=== PATIENT | female | born 1940 | race Caucasian/White ===

== ENCOUNTER 2018-02-12 09:11 | Emergency (ER) | payer MEDICARE, SELFPAY ==
[2018-02-12] VITALS (9 sets, daily range): BP systolic 128–137; BP diastolic 65–72; PULSE 73–96; RESP 14–22; TEMP 36.4–36.6; O2SAT 93–98
--- NOTE | 2018-02-12 09:20 | DI.REPORT_ITS ---
SYMPTOM/DIAGNOSIS: CHEST PAIN, H/O HTN, R/O ACUTE DISEASE CHEST X-RAY: PA and lateral. Comparison 06/14/14. Heart size and pulmonary vasculature are within normal limits. There is a moderate size hiatal hernia present. The lungs are clear. No effusions or pneumothoraces are identified. Degenerative changes are seen in the spine. IMPRESSION: No acute pulmonary process.
--- NOTE | 2018-02-12 09:22 | ED.GENADUL_ITS ---
Disposition Clinical Impression: Chest pain, Back pain Disposition: HOME Condition: Good Instructions: Chest Pain (ED), Back Pain (ED) Additional Instructions: Drink plenty of fluids and get plenty of rest. Take your regular medications as directed. Follow up with your primary care doctor in 1 week. Return to the emergency department with any worsening or new concerning symptoms. Medical Decision Making - Lab Data Laboratory Tests 02/12/18 02/12/18 02/12/18 09:20 09:20 09:20 WBC 7.79 RBC 4.73 Hgb 13.0 Hct 39.9 MCV 84.4 MCH 27.5 MCHC 32.6 RDW 14.0 Plt Count 203 MPV 9.8 Immature Gran % 0.1 Neutrophils % 81.2 Lymphocytes % 9.8 Monocytes % 8.2 Eosinophils % 0.6 Basophils % 0.1 Absolute Neutrophils 6.32 Absolute Lymphocytes 0.76 L Absolute Monocytes 0.64 Absolute Eosinophils 0.05 Absolute Basophils 0.01 D-Dimer 1633 H Sodium 139 Potassium 3.2 L Chloride 98 Carbon Dioxide 31.1 Anion Gap 9.9 BUN 13 Creatinine 0.85 Estimated GFR/1.73 m2 >= 60.00 Glucose 119 H Calcium 8.9 Magnesium 1.7 L Total Bilirubin 0.6 AST 18 ALT 20 Alkaline Phosphatase 87 Troponin I < 0.02 NT-Pro-B Natriuret Pep 234 Total Protein 8.4 H Albumin 3.3 L 02/12/18 13:50 WBC RBC Hgb Hct MCV MCH MCHC RDW Plt Count MPV Immature Gran % Neutrophils % Lymphocytes % Monocytes % Eosinophils % Basophils % Absolute Neutrophils Absolute Lymphocytes Absolute Monocytes Absolute Eosinophils Absolute Basophils D-Dimer Sodium Potassium Chloride Carbon Dioxide Anion Gap BUN Creatinine Estimated GFR/1.73 m2 Glucose Calcium Magnesium Total Bilirubin AST ALT Alkaline Phosphatase Troponin I < 0.02 NT-Pro-B Natriuret Pep Total Protein Albumin - EKG Data -: EKG Interpreted by Me 02/12/18 10:49 81bpm. Sinus. Frequent PACs. No acute ST elevation or depression. - Radiology Data Radiology results: report reviewed, image reviewed CXR: negative CT chest: 1. No evidence of PE, dissection, or aneurysm. 2. Large hiatal hernia. 3. Dependent atelectasis in both lungs. No focal consolidating infiltrate. - Medical Decision Making 77-year-old female with history of hypertension, high cholesterol who presents with substernal chest pain for the past 3 days. Admits to aching upper body pain in her arms, chest and back with intermittent sharp pleuritic substernal chest pain. She denies any chest pain at present. Admits to family stress at home recently and feels like this is the cause. Her EKG on arrival negative for acute findings. Vitals within normal limits. No acute findings on exam. She admits to chest and back pain worse with movement but denies injury. Differential diagnosis includes ACS, PE, dissection, anxiety, muscle strain. Will order cardiac workup and chest x-ray. As patient is to increased stress at home, anxiety may be a cause. As her pain is worse with movement may be musculoskeletal. She has pleuritic pain, will also order d-dimer. 1100: Pt denies any pain. She denies any acute complaints. She is refusing to get back on monitor. She is now fully dressed. Explained to pt that her labs are still pending. 1130: Labs and imaging reviewed per d-dimer 1633. Potassium 3.2. Troponin less than 0.02. BNP 234. Chest x-ray negative. Will place order for CT chest to rule out PE. 1140: Patient has allergy to IV dye. Patient states this was 30 years ago and she developed hives. She denies any difficulty swallowing or breathing after IV dye. This was discussed with radiology and agree with plan for premedication. Will give 50 mg Benadryl IV, 125 Solu-Medrol IV, and 1 L NS. 1400: CT chest negative for PE or any other acute findings. Patient has denied any chest pain while here in the emergency department. Her second troponin is negative. She feels good and is requesting to go home. She is instructed to drink plenty of fluids, get plenty of rest, follow up with her primary care doctor in 1 week and return here with any concerns. She is smiling and pleasant , appears nontoxic and in no acute distress. History of Present Illness - General Chief complaint: Chest Pain Stated complaint: BALAJI Time Seen by Provider: 02/12/18 09:18 Source: patient Mode of arrival: ambulatory Limitations: no limitations - History of Present Illness Initial comments: Patient is a 77-year-old female with history of hypertension, high cholesterol who presents with upper body pain and chest pain for the past 3 days. Patient states she has aching in her upper body and arms and intermittent sharp substernal chest pressure. Patient states the substernal chest pain is 10/10 at its worst is currently 0. She admits to some relief with heating pad. She states her sharp substernal chest pain is worse with deep breathing. She called her primary care doctor and chiropractor at 2 AM this morning regarding her symptoms but no one was available. She received a call from her primary care office this morning stating they were sending an ambulance for her for further evaluation of this. Patient also admits to frequent stress at home recently and states that she has had issues with her family for years and states she has been having more stress than usual with them regarding money. Patient denies leg pain, swelling, recent surgery or recent travel. - Related Data Calcium Carbonate [Calcium] 500 mg PO DAILY #90 tab.chew 09/14/12 Cholecalciferol (Vitamin D3) [Vitamin D3] 1,000 unit PO DAILY #90 09/14/12 Aspirin [Ecotrin] 81 mg PO DAILY 05/02/14 Atorvastatin Calcium 40 mg PO DAILY #90 tab-cap 04/08/17 Hydrochlorothiazide 12.5 mg PO DAILY #90 tab 04/08/17 Melatonin 1.5 mg PO HS PRN #30 tab-cap 06/11/17 Omeprazole 20 mg PO DAILY #90 cap 06/26/17 Ibuprofen 0.5 - 1 tab PO Q8H PRN #120 tab 11/16/17 Allergies Allergy/AdvReac Type Severity Reaction Status Date / Time adhesive Allergy Intermediate Topical Unverified 02/12/18 09:27 Irritation lisinopril Allergy Intermediate ?Kaylynn-oral, Unverified 02/12/18 09:27 lip & tongue swelling Iodinated Contrast- Oral and Allergy Unknown hives Unverified 02/12/18 09:27 IV Dye lactose AdvReac Mild Bloating Unverified 02/12/18 09:27 and diarrhea estradiol AdvReac Unknown intolerant Unverified 02/12/18 09:27 Review of Systems Constitutional: denies: chills, fever Eyes: denies: eye pain ENT: denies: ear pain, dental pain Respiratory: denies: cough, shortness of breath Cardiovascular: chest pain. denies: dyspnea on exertion Gastrointestinal: denies: abdominal pain, nausea, vomiting Genitourinary: denies: urgency, dysuria, frequency Musculoskeletal: denies: back pain Skin: denies: rash, lesions Neurological: denies: headache, weakness, numbness Past Medical History - Past Medical History Medical history: CVA/TIA, GERD, hyperlipidemia, hypertension Cerebral artery occlusion, CKD, IBS, KARL, Metastatic squamous cell carcinoma Surgical history: cholecystectomy, hysterectomy, other (Carpal tunnel release, cataract surgery) - Social History Smoking status: never smoker Alcohol use: none Drug use: none General Exam - General Limitations: no limitations General appearance: alert, in no apparent distress - Eye Eye exam: Present: EOMI - Respiratory Respiratory exam: Present: normal lung sounds bilaterally. Absent: respiratory distress, wheezes, rales, rhonchi, stridor - Cardiovascular Cardiovascular Exam: Present: regular rate, normal rhythm. Absent: bradycardia , tachycardia - GI/Abdominal GI/Abdominal exam: Present: soft, normal bowel sounds. Absent: distended, tenderness, guarding, rebound, rigid - Extremities Exam Extremities exam: Present: other (no b/l lower extremity edema) - Neurological Exam Neurological exam: Present: alert, oriented X3 - Psychiatric Psychiatric exam: Present: normal affect - Skin Skin exam: Present: warm, dry, intact
[2018-02-12 09:38] LABS: Abs Immature Grans 0.01 k/cumm (0.0-0.09); Absolute Basophil Count 0.01 k/cumm (0.0-0.2); Absolute Eosinophil Count 0.05 k/cumm (0.0-0.7); Absolute Lymphocyte Count 0.76 k/cumm (1.2-3.4); Absolute Monocyte Count 0.64 k/cumm (0.11-0.7); Absolute Neutrophil Count 6.32 k/cumm (1.2-6.7); Basophils % 0.1; Eosinophils % 0.6; HCT 39.9 % (36.0-46.0); Immature Grans % 0.1; Lymphocytes % 9.8; Mean Corp. HGB Concentration 32.6 g/dL (32.0-36.0); Mean Corpuscular Hemoglobin 27.5 pg (27.0-33.0); Mean Corpuscular Volume 84.4 fL (80-95); Mean Platelet Volume 9.8 fL (8.0-11.0); Monocytes % 8.2; Neutrophils % 81.2; Platelet Count 203 x1000/uL (130-400); RBC 4.73 m/cumm (4.00-5.20); White Blood Cell Count 7.79 k/cumm (4.4-10.8)
[2018-02-12 09:55] LABS: ALT 20 U/L (12-78); AST 18 U/L (15-37); Albumin 3.3 g/dL (3.4-5.0); Alkaline Phosphatase 87 U/L (46-116); Anion Gap 9.9 mmol/L (3-11); BUN 13 mg/dL (7-18); Bilirubin, Total 0.6 mg/dL (0.2-1.0); CO2 31.1 mmol/L (21.0-32.0); CREATININE 0.85 mg/dL (0.55-1.02); Calcium 8.9 mg/dL (8.5-10.1); Chloride 98 mmol/L (98-107); Glucose 119 mg/dL (70-100); Magnesium 1.7 mg/dL (1.8-2.4); NT-proBNP 234 pg/mL; Potassium 3.2 mmol/L (3.5-5.1); Sodium 139 mmol/L (136-145); Total Protein 8.4 g/dL (6.4-8.2)
[2018-02-12 09:56] LABS: Troponin I < 0.02 ng/mL (0.00-0.06)
--- NOTE | 2018-02-12 11:01 | NUR.NOTE ---
pt declined to be placed back on cardiac monitor technician after xray- has removed gown and put her own clothing back on. Note:
[2018-02-12 11:27] LABS: D-Dimer 1633 ng/mlFEU (<500)
--- NOTE | 2018-02-12 11:30 | DI.RPTCT_ITS ---
SYMPTOM/DIAGNOSIS: PLEURITIC CHEST PAIN, ELEVATED D DIMER, ? PE PE CHEST CT: CT angiography was performed with multi slice acquisition and multi planar and 3D reconstruction. CT scan of the chest was performed according to the pulmonary embolus protocol. No priors for comparison. There is no evidence of a pulmonary embolus. There is atherosclerosis of the thoracic aorta but no aneurysmal dilatation or dissection. Heart size is within normal limits. There is no significant pericardial effusion. No findings to suggest right ventricular dysfunction are present. Coronary artery calcifications are present. There is no significant mediastinal or hilar adenopathy. There is a large hiatal hernia present. No pleural effusion or pneumothorax is identified. Dependent atelectatic changes are seen in the lungs. No focal consolidating infiltrates are seen. The tracheobronchial tree is unremarkable. The upper abdominal images show the patient is status post cholecystectomy. IMPRESSION: 1. No evidence of a pulmonary embolus, thoracic aortic dissection or aneurysm. 2. Large hiatal hernia. 3. Dependent atelectasis in the lungs. No focal consolidating infiltrate. These findings were discussed with the ER on the date of the examination.
[2018-02-12] MEDS: Normal Saline 1,000 ML 1000 ML IV (11:57)
[2018-02-12] MEDS: diphenhydrAMINE 50 MG/ML VIAL IVP (11:58)
[2018-02-12] MEDS: methylPREDNISolone SUCC 125 MG VIAL IVP (11:59)
[2018-02-12] MEDS: Potassium Chloride 20 MEQ TABCR 40 MEQ PO (12:00)
[2018-02-12] MEDS: Omnipaque 350 MG/ML 100 ML BTL IV (13:39)
[2018-02-12 14:17] LABS: Troponin I < 0.02 ng/mL (0.00-0.06)
== END 2018-02-12 15:20 | disposition home or self-care (01) ==
PROVIDERS: Emergency Provider Physician Assistant; PCP Nurse Practitioner Family
DX: R07.9 Chest pain, unspecified (principal); M54.6 Pain in thoracic spine; R79.1 Abnormal coagulation profile; I12.9 Hypertensive chronic kidney disease with stage 1 through stage 4 chronic kidney disease, or unspecified chronic kidney disease; N18.9 Chronic kidney disease, unspecified
CPT/HCPCS: 71046; 71275; 93005; 96361; 96374; 96375; 99285 ×2; J1200; J2930; 36415; 80053; 83735; 83880; 84484; 85025; 85379; 93010; J3490

== ENCOUNTER 2018-03-06 23:25 | Emergency (ER) | payer MEDICARE, SELFPAY ==
[2018-03-06 23:30] VITALS: BP 157/84; PULSE 77; RESP 15; TEMP 36.6; O2SAT 98
[2018-03-06 23:33] VITALS: RESP 18
[2018-03-06 23:48] VITALS: PULSE 64; RESP 15; O2SAT 97
--- NOTE | 2018-03-06 23:49 | ED.GENADUL_ITS ---
Discharge Plan Discharge Details Chief Complaint: Chest Pain Clinical Impression: Epigastric pain Reason For Visit: CHEST PAIN Primary Care Provider: Jess Kumar ED Provider: Eder Villeda Disposition Patient Disposition: HOME Condition: Good Home Meds and New Rx's Prescriptions: New sucralfate [Carafate] 100 mg/mL suspension 10 ml PO QID Qty: 420 RF: 0 Continue calcium carbonate 500 MG tablet,chewable 500 mg PO DAILY Qty: 90 RF: 3 cholecalciferol (vitamin D3) 1,000 UNIT tablet 1,000 unit PO DAILY Qty: 90 RF: 3 atorvastatin 40 MG tablet 40 mg PO DAILY Qty: 90 RF: 3 hydrochlorothiazide 12.5 MG capsule 12.5 mg PO DAILY Qty: 90 RF: 3 melatonin 3 MG tablet 1.5 mg PO HS PRNQty: 30 RF: 3 omeprazole 20 MG capsule,delayed release(DR/EC) 20 mg PO DAILY Qty: 90 RF: 3 potassium chloride 10 MEQ tablet extended release 10 meq PO DAILY Qty: 14 RF: 0 aspirin [Ecotrin Low Strength] 81 MG tablet,delayed release (DR/EC) 81 mg PO DAILY RF: 0 Discontinued ibuprofen 600 MG tablet 0.5 - 1 tab PO Q8H PRN Qty: 120 RF: 0 Discharge Instructions Instructions: Epigastric Pain (ED) Additional Instructions: Continue your omeprazole. We will start Carafate to see if that helps. Discontinue ibuprofen or other nonsteroidal use. Follow-up with primary care this week. You may need referral to vascular surgery for further evaluation of some stenosis of an artery in your abdomen. You also have a large hiatal hernia. Return to the emergency department for fever, vomiting, new or worsening pain, shortness of breath. Referrals: Jess Kumar, INCIDENT RESPONSE ENGINEER [Primary Care Provider] - Medical Decision Making [facility] Narrative Medical decision making narrative: Patient presenting with severe thoracic and abdominal pain both anterior and posterior. She cannot describe it any better. Onset was tonight. Previously here on the 10th with chest pain. Workup including CTA of the chest negative. She complains of tenderness in the epigastric region and is holding the epigastric area. She does state that it hurts to take a breath. She does not look short of breath. Differential includes ACS, PE, dissection, abdominal source including pancreatitis, gastritis. EKG sinus rhythm with PACs. No acute ST changes noted. Normal axis and intervals. No significant change from previous done on the . IV established. Patient given a GI cocktail. Laboratory studies sent including troponin and lipase. Repeat CTA of the thoracic and abdomen obtained to evaluate for possible dissection, PE, other abdominal pathology. 2AM - Labs are unremarkable. Magnesium a little low. Lipase normal. Troponin negative. CBC and chemistries and liver function really unremarkable. CTA of the chest abdomen pelvis negative for dissection or PE. She does have a large hiatal hernia. She also has evidence of stenosis of the SMA. She looks more comfortable though she continues to complain of pain. She is at this point only complaining of abdominal pain. Her abdomen is now completely benign to palpation. We will give her some IV Pepcid and get a second troponin. 5AM - Patient's second troponin is negative. Her vital signs have been fine. Her abdomen remains benign. She looks completely comfortable and has been sleeping. Suspect pain is related to hiatal hernia and reflux. Doubt that it is related to stenosis of the SMA, pain resolved without pain medication. Patient to continue her PPI. Avoid nonsteroidals. Start Carafate to see if this helps at all. Refer back to primary care. Consider referral to vascular for further evaluation of her SMA stenosis. Medical Records Medical records reviewed: Yes I reviewed the patient's medical records. Reviewed patient's ED visit on 12 February Lab Data Lab results reviewed: Yes I reviewed the patient's lab results. ECG Data Attestation: I personally reviewed and interpreted this ECG (s) as follows: ( see MDM) Prior ECG tracings: available for review HPI - General Adult General Mode of arrival: ambulatory . Date/Time Provider Initiated Documentation: 03/06/18 23:29 . Limitations to Documentation: no limitations . Information obtained by: patient and old records reviewed . HPI Narrative-FOR DICTATION ONLY HPI Narrative: Patient presents to ED with complaint of pain from her waist up. She is holding her epigastric area. She complains of pain in the chest, abdomen, back. Pain started about 7 PM and has got worse. She is not able to describe the pain for me, just says severe. She states that it hurts to take a deep breath but she does not necessarily feel short of breath. She has no nausea or vomiting. She has no fever or cough. Pain does seem worse with movement. She was seen here on [place] 10 with chest pain with a negative workup. Pain resolved while she was in the ED and she had not had any recurrent symptoms until tonight. She did not follow-up with primary care. Related Data Home Medications Medication Instructions Recorded Confirmed calcium carbonate 500 mg PO DAILY #90 tab.chew 09/14/12 03/06/18 cholecalciferol (vitamin D3) 1,000 unit PO DAILY #90 09/14/12 03/06/18 aspirin [Ecotrin Low Strength] 81 mg PO DAILY 05/02/14 03/06/18 Previous Rx's Medication Instructions Recorded sucralfate [Carafate] 10 ml PO QID #420 ml 03/07/18 Allergies Allergy/AdvReac Type Severity Reaction Status Date / Time adhesive Allergy Intermediate Topical Unverified 03/06/18 23:32 Irritation lisinopril Allergy Intermediate ?Kaylynn-oral, Unverified 03/06/18 23:32 lip & tongue swelling Iodinated Contrast- Oral and Allergy Unknown hives Unverified 03/06/18 23:32 IV Dye lactose AdvReac Mild Bloating Unverified 03/06/18 23:32 and diarrhea estradiol AdvReac Unknown intolerant Unverified 03/06/18 23:32 General Stated Complaint: Chest Pain DMITRIY: 2 Review of Systems Constitutional Denies chills, Denies fever(s), Denies headache(s), Denies malaise and Denies weakness Eyes Patient Denies change in vision, denies and Denies eye pain ENT Denies otalgia, Denies headache(s), Denies nasal congestion and Denies sore throat Cardiovascular Reports chest pain, Denies pedal edema, Denies edema, Denies leg edema, Denies lightheadedness, Denies palpitations and Denies dyspnea Respiratory Denies cough, Reports pain on inspiration and Denies dyspnea Gastrointestinal Reports abdominal pain, Denies diarrhea, Denies nausea and Denies vomiting Genitourinary Denies hematuria, Denies urinary frequency, Denies dysuria and Denies urinary urgency Musculoskeletal Reports back pain, Denies arthralgias, Denies joint swelling and Denies numbness Integumentary/Breasts Denies erythema and Denies rash Neurologic Denies confusion, Denies headache(s), Denies numbness and Denies weakness Psychiatric Denies confusion Endocrine Denies palpitations [facility] Family History Mother Coronary artery disease Father No problems noted. 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 Osteoporosis Sleep apnea arthralgia of lower extremity Social History Smoking/Tobacco Use Status: Former Tobacco Use Surgical History Biopsy, Lymph Node Skin Cancer Removal Exam Const General: cooperative and no acute distress Orientation: alert and oriented x3 Neck Neck: normal visual inspection, full ROM and supple Chest Chest: tenderness costochondral junction Resp Effort & Inspection: normal respiratory effort Auscultation: clear to auscultation bilaterally Cardio Rate: regular rate Rhythm: regular rhythm Heart Sounds: S1 normal and S2 normal Pulses: radial pulses present and dorsalis pedis pulses present GI Inspection: normal to inspection Palpation: soft, no guarding and tender in the epigastrum Back/Spine/Pelvis Back: No back tenderness Skin General skin exam: no erythema Rashes: no rashes Neuro General: alert, oriented x3, no focal motor deficits and CN's II-XI intact bilaterally Extrem General: normal to inspection, no calf tenderness and no edema Course Vital Signs Temperature 97.9 F 03/06/18 23:30 Pulse 77 03/06/18 23:30 Respiratory Rate 15 03/06/18 23:30 Blood Pressure 157/84 H 03/06/18 23:30 Pulse Oximetry 98 03/06/18 23:30 Temperature 97.9 F 03/06/18 23:30 Pulse 77 03/06/18 23:30 Respiratory Rate 18 03/06/18 23:33 Blood Pressure 157/84 H 03/06/18 23:30 Pulse Oximetry 98 03/06/18 23:30
[2018-03-06 23:50] VITALS: PULSE 68; RESP 14; O2SAT 97
[2018-03-06 23:53] LABS: Abs Immature Grans 0.01 k/cumm (0.0-0.09); Absolute Basophil Count 0.01 k/cumm (0.0-0.2); Absolute Eosinophil Count 0.09 k/cumm (0.0-0.7); Absolute Lymphocyte Count 0.76 k/cumm (1.2-3.4); Absolute Monocyte Count 0.61 k/cumm (0.11-0.7); Absolute Neutrophil Count 7.65 k/cumm (1.2-6.7); Basophils % 0.1; HGB 12.6 g/dL (12.0-15.5); Immature Grans % 0.1; Lymphocytes % 8.3; Mean Corp. HGB Concentration 32.3 g/dL (32.0-36.0); Mean Corpuscular Hemoglobin 27.1 pg (27.0-33.0); Mean Corpuscular Volume 83.9 fL (80-95); Mean Platelet Volume 9.6 fL (8.0-11.0); Monocytes % 6.7; Neutrophils % 83.8; Platelet Count 212 x1000/uL (130-400); RBC 4.65 m/cumm (4.00-5.20); White Blood Cell Count 9.13 k/cumm (4.4-10.8)
[2018-03-07] VITALS (10 sets, daily range): BP systolic 125–128; BP diastolic 53–102; PULSE 63–96; RESP 12–18; O2SAT 95–98
--- NOTE | 2018-03-07 00:05 | DI.CT_ITS ---
SYMPTOMS/DIAGNOSIS: CHEST, BACK, ABDOMINAL PAIN, PLEURITIC IN CHEST CT OF THE CHEST, ABDOMEN AND PELVIS: There is no evidence of pulmonary emboli or aortic dissection. No pleural or pericardial effusions or focal infiltrates are seen. There is minimal subpleural interstitial disease and dependent atelectasis. A large hiatal hernia is present. There is calcification along the aorta, but no evidence of an aneurysm. There is calcification in the superior mesenteric artery causing narrowing. There is no evidence of bowel wall thickening. The patient is status post cholecystectomy. The liver, spleen, kidneys and adrenals are unremarkable. Degenerative changes are seen in the spine. IMPRESSION: Atherosclerotic changes. No evidence of dissection or aneurysm. 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
[2018-03-07 00:08] LABS: ALT 20 U/L (12-78); AST 20 U/L (15-37); Albumin 3.2 g/dL (3.4-5.0); Alkaline Phosphatase 83 U/L (46-116); Anion Gap 6.8 mmol/L (3-11); BUN 23 mg/dL (7-18); Bilirubin, Total 0.4 mg/dL (0.2-1.0); CO2 29.2 mmol/L (21.0-32.0); CREATININE 0.91 mg/dL (0.55-1.02); Calcium 9.2 mg/dL (8.5-10.1); Chloride 99 mmol/L (98-107); Estimated GFR 59.94 (mL/min/1.73m2); Glucose 136 mg/dL (70-100); Magnesium 1.6 mg/dL (1.8-2.4); Potassium 3.6 mmol/L (3.5-5.1); Sodium 135 mmol/L (136-145); Total Protein 7.9 g/dL (6.4-8.2)
[2018-03-07 00:09] LABS: Lipase 118 U/L (73-393); Troponin I < 0.02 ng/mL (0.00-0.06)
[2018-03-07] MEDS: Normal Saline Flush 10 ML SYR IVP (00:46)
[2018-03-07] MEDS: Lactated Ringers 1,000 ML 150 ML IV (00:46)
--- NOTE | 2018-03-07 01:04 | DI.VRAD_ITS ---
EXAM: CT Angiography Chest With Intravenous Contrast CLINICAL HISTORY: 77 years old, female; Pain; Other: Chest/back/abdominal pain; Pleuritic in chest; Additional info: Chest/back/abdominal pain; Pleuritic in chest. Pe/cta. Cta abd TECHNIQUE: Axial computed tomographic angiography images of the chest with intravenous contrast using pulmonary embolism protocol. Coronal and sagittal reformatted images were created and reviewed. CONTRAST: 100 mL of omni 350 administered intravenously. COMPARISON: No relevant prior studies available. FINDINGS: Pulmonary arteries: Unremarkable. No pulmonary embolism. Aorta: There is no evidence for thoracic aortic aneurysm or dissection. Lungs: Basilar dependent pulmonary atelectasis is present. Nonspecific minimal subpleural interstitial prominence noted most prominently at the bases likely reflecting an element of mild chronic interstitial lung disease No mass. Pleural space: Unremarkable. No significant effusion. No pneumothorax. Heart: Trace pericardial fluid No evidence of RV dysfunction. Mediastinum: Large hiatal hernia. Bones/joints: No acute fracture. No dislocation. Soft tissues: Unremarkable. Lymph nodes: Small nonspecific mediastinal lymph nodes are present. IMPRESSION: 1. There is no evidence for thoracic aortic aneurysm or dissection. 2. Large hiatal hernia. EXAM: CT Angiography Abdomen With Intravenous Contrast EXAM DATE/TIME: 03/07/2018 12:11 AM. CLINICAL HISTORY: 77 years old, female; Pain; Other: Chest/back/abdominal pain; Pleuritic in chest; Additional info: Chest/back/abdominal pain; Pleuritic in chest. Pe/cta. Cta abd TECHNIQUE: Axial computed tomographic angiography images of the abdomen with intravenous contrast. CONTRAST: 100 mL of omni 350 administered intravenously. 100 mL of omni 350 administered intravenously. COMPARISON: CT - CHEST FOR PULMONARY EMBOLUS 02/12/2018 1:04 PM FINDINGS: Aorta: There is no evidence for abdominal aortic aneurysm or dissection. Celiac trunk and mesenteric arteries: Moderate to high-grade SMA stenosis incidentally noted Renal arteries: No acute findings. No occlusion or significant stenosis. Lung bases: Unremarkable. No mass. No consolidation. Liver: Unremarkable. No mass. Gallbladder and bile ducts: The patient is status post cholecystectomy. No ductal dilation. Pancreas: Unremarkable. No ductal dilation. No mass. Spleen: Unremarkable. No splenomegaly. Adrenals: Unremarkable. No mass. Kidneys and ureters: Unremarkable. No hydronephrosis. No solid mass. Stomach and bowel: Unremarkable. No obstruction. No mucosal thickening. Intraperitoneal space: Unremarkable. No significant fluid collection. No free air. Bones/joints: No acute fracture. No dislocation. Soft tissues: Unremarkable. No mass. Lymph nodes: Unremarkable. No enlarged lymph nodes. IMPRESSION: There is no evidence for abdominal aortic aneurysm or dissection. Dictated and Authenticated by: Sukhwinder Raymundo MD. Ordering:ALONDRA BUENROSTRO MD
[2018-03-07] MEDS: FAMOTIDINE 20 MG/50 ML BAG 100 MG IVPB (01:21)
[2018-03-07 04:39] LABS: Troponin I < 0.02 ng/mL (0.00-0.06)
[2018-03-07] MEDS: Omnipaque 350 MG/ML 100 ML BTL IJ (09:26)
== END 2018-03-07 05:15 | disposition home or self-care (01) ==
PROVIDERS: Emergency Provider Emergency Medicine; PCP Nurse Practitioner Family
DX: R10.13 Epigastric pain (principal); K44.9 Diaphragmatic hernia without obstruction or gangrene; I10 Essential (primary) hypertension
CPT/HCPCS: 36415; 71275; 74175; 80053; 83690; 93005; 96361; 96365; 99285; 83735; 84484; 85025; 85610; 93010; J3490

== ENCOUNTER → 2018-04-02 10:31 | Outpatient (BNVA) | payer MEDICARE, SELFPAY | PROVIDERS: PCP Nurse Practitioner Family; Referring Provider Nurse Practitioner Family; Visit Provider Surgery | DX: K44.9 Diaphragmatic hernia without obstruction or gangrene (principal) | CPT/HCPCS: 99213 ==

== ENCOUNTER 2018-04-08 10:06 | Day surgery (SDC) | payer MEDICARE, SELFPAY ==
--- NOTE | 2018-04-08 06:54 | PDOC.DSDIS_ITS ---
Discharge Plan Disposition Patient Disposition: HOME Condition: Good Discharge Details Reason For Visit: Epigastric pain/Hiatal hernia Attending Provider: Yulissa Chung Primary Care Provider: Jess Kumar Home Meds and New Rx's Prescriptions: Continue calcium carbonate 500 MG tablet,chewable 500 mg PO DAILY Qty: 90 RF: 3 cholecalciferol (vitamin D3) 1,000 UNIT tablet 1,000 unit PO DAILY Qty: 90 RF: 3 atorvastatin 40 MG tablet 40 mg PO DAILY Qty: 90 RF: 3 hydrochlorothiazide 12.5 MG capsule 12.5 mg PO DAILY Qty: 90 RF: 3 melatonin 3 MG tablet 1.5 mg PO HS PRNQty: 30 RF: 3 omeprazole 20 MG capsule,delayed release(DR/EC) 20 mg PO DAILY Qty: 90 RF: 3 potassium chloride 10 MEQ tablet extended release 10 meq PO DAILY Qty: 14 RF: 0 aspirin [Ecotrin Low Strength] 81 MG tablet,delayed release (DR/EC) 81 mg PO DAILY RF: 0 Discontinued sucralfate [Carafate] 100 mg/mL suspension 10 ml PO QID Qty: 420 RF: 0 Discharge Instructions Instructions: Hiatal Hernia (DC), Upper Endoscopy (DC), Gastric Polyps (DC), Gastritis (DC), Diet for Stomach Ulcers and Gastritis (GEN) Additional Instructions: Findings: Inflammation of the stomach Stomach polyps- most likely due to chronic inflammation Large Hiatal hernia Follow up: 3-4 weeks New Medications: Continue Omeprazole 20 mg daily Please call if you develop: Fevers >101.5 Nausea or Vomiting Abdominal pain that is not transient Shortness of breath 1. Because there will be medication in your system for the next 24 hours, you may feel a little sleepy. Your coordination will be affected. Therefore: a. Do not drive or operate dangerous equipment for 24 hours. b. Do not drink alcohol beverages for 24 hours (not even beer). c. Plan to go home and rest for the day. 2. Generally there are no restrictions on your activity after a day or so has gone by, but you may feel a bit fatigued for a few days. 3 After you arrive home you may have a light meal and return to a normal diet as you can tolerate it without feeling sick to your stomach. 4. After surgery, you may feel pain or discomfort. This should be only transient , but if it persists please contact your doctor. 5. If there are any questions regarding the findings of your procedure, please feel free to contact your doctor. 6. If you are unable to contact your doctor with a problem, contact the hospital at [phone]. 7. Continue all your regular medications unless directed otherwise. I understand the above instructions and have no questions. Signature of Patient or Responsible Adult Escort Date/Time Name of Responsible Adult Escort Signature of Nurse Date/Time Referrals: Yulissa Chung MD [ [facility] STAFF PHYSICIAN] - (Follow up in 2-3 weeks) Activity:: Activity as Tolerated Diet:: Low acid diet Discharge Orders Discharge Orders: Discharge Order (Routine); Ordered 04/08/18 Ordered By: Yulissa Chung
--- NOTE | 2018-04-08 06:57 | ROE_ITS ---
Operative Note DATE OF PROCEDURE: 04/08/18 PRE-OP DIAGNOSIS: Epigastric pain/Hiatal Hernia POST-OP DIAGNOSIS: other (Gastritis, Gastric polyps, large Hiatal hernia) PROCEDURE: EGD with biopsies SURGEON: Yulissa Chung ANESTHESIA: MAC (Lamonte Greer CRNA) ESTIMATED BLOOD LOSS: 5 COMPLICATIONS: None Patient was transported to: same day Patient's condition: stable Indications: Mrs. Grajeda is a 77 year old female with atypical chest pain and epigastric pain with a hiatal hernia of CT scan who was seen in the office to discuss an EGD. Patient denies heart burn or GERD. She is not taking any antacids at this time. Risks, benefits and complications were reviewed and she wished to proceed. No guarantees were given or implied. Findings: 15 cm Hiatal Hernia Gastritis gastric polyps Procedure Description: After informed consent was obtained the patient was take to the procedure room and placed in a supine position. Monitors were applied and a time out was done. The patients name, date of , procedure type, allergies to medications and metal in their body was reviewed. A bite block was placed and the patient was sedated. Once sedated and comfortable the gastroscope was advanced through the oropharynx which was grossly normal into the esophagus. The proximal and mid-esophagus were normal. In the distal esophagus there was mild inflammation noted. The scope was advanced into the stomach and through the pylorus into the 3rd portion of the duodenum. The duodenum was noted to be normal. The scope was retracted back into the stomach and biopsies were done to rule out H. pylori. There were no ulcers. Numerous polyps were noted. 2 were biopsied. The scope was retroflexed. The cardia and fundus were noted to be normal. There was a 15 cm hiatal hernia noted. There was also a small amount of retained food in the Herniated portion of the stomach. The scope was retracted back into the esophagus and biopsies were done of the GE junction to rule out Palafox's. The Z line was regular. The GE junction was at 25 cm. The scope was removed and the patient was woken up and taken back to [facility] in stable condition. Follow up: 3-4 weeks. Continue Omeprazole daily
[2018-04-08 10:21] VITALS: BP 128/88; PULSE 103; RESP 16; TEMP 36.9; O2SAT 96
[2018-04-08] MEDS: Lactated Ringers 1,000 ML 80 ML IV (10:41)
--- NOTE | 2018-04-08 11:40 | STOM_PTH ---
PATIENT: Zo Grajeda LOC: [facility] U#:[id number] AGE/SX: 77/F ROOM: RE04/08/[address]: Yulissa Chung MD : [id number] BED: DIS: 04/08/2018 SPEC #: [id number] RECD: 04/08/18 12:42 STATUS: LUIS A REQ #: [id number] [place]: 04/08/18 11:[address]: Yulissa Chung DEPT: Surgical Specimen RECD BY: Janett Romero ENTERED: 04/08/18 12:43 SP TYPE: STOMACH OTHR DR: Jess Kumar APRN Tissues: 1 - STOMACH BIOPSY 2 - STOMACH BIOPSY 3 - ESOPHAGUS BIOPSY Procedures: GROSS AND MICRO LEVEL 4 Comments: [id number]
[2018-04-08 12:35] VITALS: BP 148/71; PULSE 60; RESP 20; TEMP 36; O2SAT 98
== END 2018-04-08 13:00 | disposition home or self-care (01) ==
LOC: SUR 10:06
PROVIDERS: PCP Nurse Practitioner Family; Visit Provider Surgery
PROC: 0DJ68ZZ Inspection of Stomach, Via Natural or Artificial Opening Endoscopic (ICD-10-PCS; CPT 43235; principal; 2018-04-08 11:00)
DX: R10.13 Epigastric pain (principal); K31.7 Polyp of stomach and duodenum; K31.89 Other diseases of stomach and duodenum; K21.0 Gastro-esophageal reflux disease with esophagitis; K44.9 Diaphragmatic hernia without obstruction or gangrene; G47.33 Obstructive sleep apnea (adult) (pediatric); K21.9 Gastro-esophageal reflux disease without esophagitis; I10 Essential (primary) hypertension
CPT/HCPCS: 43239; 76942; 88305

== ENCOUNTER 2018-04-16 13:12 | Outpatient (CLI) | payer MEDICARE, SELFPAY ==
[2018-04-16 13:34] LABS: Abs Immature Grans 0.01 k/cumm (0.0-0.09); Absolute Basophil Count 0.01 k/cumm (0.0-0.2); Absolute Eosinophil Count 0.12 k/cumm (0.0-0.7); Absolute Lymphocyte Count 1.06 k/cumm (1.2-3.4); Absolute Monocyte Count 0.46 k/cumm (0.11-0.7); Absolute Neutrophil Count 4.32 k/cumm (1.2-6.7); Basophils % 0.2; HCT 39.7 % (36.0-46.0); HGB 12.7 g/dL (12.0-15.5); Immature Grans % 0.2; Lymphocytes % 17.7; Mean Corpuscular Hemoglobin 27.1 pg (27.0-33.0); Mean Corpuscular Volume 84.6 fL (80-95); Mean Platelet Volume 9.7 fL (8.0-11.0); Monocytes % 7.7; Neutrophils % 72.2; Platelet Count 225 x1000/uL (130-400); RBC 4.69 m/cumm (4.00-5.20); RBC Distribution Width 14.2 % (11.7-14.6); White Blood Cell Count 5.98 k/cumm (4.4-10.8)
[2018-04-16 13:44] LABS: ALT 23 U/L (12-78); AST 15 U/L (15-37); Albumin 3.3 g/dL (3.4-5.0); Alkaline Phosphatase 92 U/L (46-116); BUN 20 mg/dL (7-18); Bilirubin, Total 0.2 mg/dL (0.2-1.0); Calcium 8.9 mg/dL (8.5-10.1); Chloride 99 mmol/L (98-107); Glucose 115 mg/dL (70-100); Potassium 3.1 mmol/L (3.5-5.1); Sodium 138 mmol/L (136-145); Total Protein 8.1 g/dL (6.4-8.2)
== END 2018-04-16 13:32 ==
PROVIDERS: PCP Nurse Practitioner Family; Visit Provider Internal Medicine Medical Oncology
DX: C80.1 Malignant (primary) neoplasm, unspecified (principal); C44.92 Squamous cell carcinoma of skin, unspecified
CPT/HCPCS: 36415; 80053; 85025

== ENCOUNTER → 2018-04-27 13:08 | Outpatient (BNVA) | payer MEDICARE, SELFPAY | PROVIDERS: PCP Nurse Practitioner Family; Referring Provider Nurse Practitioner Family; Visit Provider Surgery | DX: K20.9 Esophagitis, unspecified (principal); K29.70 Gastritis, unspecified, without bleeding; I12.9 Hypertensive chronic kidney disease with stage 1 through stage 4 chronic kidney disease, or unspecified chronic kidney disease | CPT/HCPCS: 99212; 99213 ==

== ENCOUNTER 2018-09-08 15:27 | Outpatient (CLI) | payer MEDICARE, SELFPAY ==
[2018-09-08 17:11] LABS: Potassium 3.4 mmol/L (3.5-5.1)
== END 2018-09-08 15:47 ==
PROVIDERS: PCP Nurse Practitioner Family; Visit Provider Nurse Practitioner Family
DX: E87.6 Hypokalemia (principal)
CPT/HCPCS: 36415; 84132

== ENCOUNTER 2019-01-22 15:09 | Outpatient (CLI) | payer MEDICARE, SELFPAY ==
--- NOTE | 2019-01-21 12:00 | DI.RAD_ITS ---
SYMPTOM/DIAGNOSIS: LOW BACK AND RT HIP PAIN, S/P VALL, ? FX, M54.5, M81.0, OSTEOPOROSIS PELVIS AND RIGHT HIP: Two views. There is periarticular spurring at the right hip joint. There is mild narrowing of the joint space. The bones are intact. The bones appear osteopenic. There are degenerative changes seen at the sacroiliac joints. Mild degenerative changes are also noted in the left hip. Vascular calcifications are present. IMPRESSION: Mild osteoarthritis of the hips bilaterally. LUMBAR SPINE: AP, lateral and bilateral oblique views were obtained. There are five lumbar type vertebral bodies. There is normal alignment. No spondylolysis or spondylolisthesis is present. There is disc space narrowing and vacuum discs at T 12-L 1 and L 5-S 1. There are endplate osteophytes throughout the lumbar spine. No acute fractures or subluxations are seen. Degenerative changes of the facet joints are present throughout. The bones appear osteopenic. There is calcium within the abdominal aorta. There are surgical clips in the right upper quadrant of the abdomen, likely reflecting prior cholecystectomy. Degenerative changes are seen at the sacroiliac joints bilaterally. IMPRESSION: Moderate degenerative changes in the lumbar spine.
== END 2019-01-22 15:29 ==
PROVIDERS: PCP Nurse Practitioner Family; Visit Provider Nurse Practitioner Family
DX: M54.5 Low back pain (principal); M81.0 Age-related osteoporosis without current pathological fracture; M25.551 Pain in right hip; M16.0 Bilateral primary osteoarthritis of hip; M85.88 Other specified disorders of bone density and structure, other site; M53.3 Sacrococcygeal disorders, not elsewhere classified; M47.817 Spondylosis without myelopathy or radiculopathy, lumbosacral region
CPT/HCPCS: 72110; 73502

== ENCOUNTER 2019-12-05 19:30 | Outpatient (REF) | payer MEDICARE, SELFPAY ==
[2019-12-05 19:19] LABS: Anion Gap 6.6 mmol/L (3-11); BUN 18 mg/dL (7-18); CO2 32.4 mmol/L (21.0-32.0); CREATININE 0.92 mg/dL (0.55-1.02); Calcium 9.4 mg/dL (8.5-10.1); Calculated LDL 99 mg/dL (<100); Chloride 102 mmol/L (98-107); Cholesterol 167 mg/dL (<200); Estimated GFR 58.89 (mL/min/1.73m2); Glucose 92 mg/dL (74-106); HDL Cholesterol 55 mg/dL (40-60); Potassium 3.7 mmol/L (3.5-5.1); Sodium 141 mmol/L (136-145); Triglyceride 65 mg/dL (<150)
== END 2019-12-05 19:50 ==
LOC: LBN 19:30
PROVIDERS: PCP Nurse Practitioner Family; Visit Provider Nurse Practitioner Family
DX: I10 Essential (primary) hypertension (principal); E78.5 Hyperlipidemia, unspecified
CPT/HCPCS: 80048; 80061

== ENCOUNTER 2020-10-08 13:26 | Outpatient (REF) | payer MEDICARE, SELFPAY ==
[2020-10-08 13:41] LABS: Abs Immature Grans 0.02 10^3/uL (0.0-0.06); Absolute Basophil Count 0.04 10^3/uL (0.0-0.2); Absolute Eosinophil Count 0.14 10^3/uL (0.0-0.7); Absolute Lymphocyte Count 1.41 10^3/uL (1.2-3.4); Absolute Monocyte Count 0.39 10^3/uL (0.1-0.8); Absolute Neutrophil Count 4.98 10^3/uL (1.2-6.7); Basophils % 0.6; HGB 12.6 g/dL (11.2-15.7); Immature Grans % 0.3; Lymphocytes % 20.2; MCH 26.6 pg (27.0-33.0); MCHC 31.5 % (32.0-36.0); MCV 84.4 fL (80-95); MPV 11.2 fL (8.0-11.0); Monocytes % 5.6; Neutrophils % 71.3; Nucleated RBC 0 %; Platelet Count 173 10^3/uL (130-400); RBC 4.74 10^6/uL (3.93-5.22); RDW 13.9 % (11.7-14.6); RDW-SD 43.1 fL; WBC 6.98 10^3/uL (4.4-10.8)
[2020-10-08 14:17] LABS: ALT 23 U/L (14-59); AST 21 U/L (15-37); Albumin 3.6 g/dL (3.4-5.0); Alkaline Phosphatase 88 U/L (46-116); Anion Gap 9.1 mmol/L (3-11); BUN 26 mg/dL (7-18); Bilirubin, Total 0.4 mg/dL (0.2-1.0); CO2 27.9 mmol/L (21.0-32.0); CREATININE 0.9 mg/dL (0.55-1.02); Calcium 9.2 mg/dL (8.5-10.1); Calculated LDL 89 mg/dL (<100); Chloride 103 mmol/L (98-107); Cholesterol 166 mg/dL (<200); Glucose 107 mg/dL (74-106); HDL Cholesterol 66 mg/dL (40-60); Potassium 3.5 mmol/L (3.5-5.1); Sodium 140 mmol/L (136-145); Total Protein 7.9 g/dL (6.4-8.2); Triglyceride 56 mg/dL (<150)
== END 2020-10-08 13:27 | disposition home or self-care (01) ==
LOC: LBN 13:26
PROVIDERS: PCP Nurse Practitioner Family; Visit Provider Nurse Practitioner Family
DX: E78.5 Hyperlipidemia, unspecified (principal); I10 Essential (primary) hypertension; N18.30 Chronic kidney disease, stage 3 unspecified; Z51.81 Encounter for therapeutic drug level monitoring
CPT/HCPCS: 80053; 80061; 85025

== ENCOUNTER 2021-10-07 04:16 | Outpatient (CLI) | payer MEDICARE, SELFPAY ==
[2021-10-07 12:58] LABS: TSH (W/Ref FT4) 1.63 uIU/mL (0.36-3.74); Vitamin B12 412 pg/mL (193-986)
== END 2021-10-07 04:17 | disposition home or self-care (01) ==
LOC: LBO 04:17
PROVIDERS: PCP Nurse Practitioner Family; Visit Provider Nurse Practitioner Family
DX: R41.3 Other amnesia (principal)
CPT/HCPCS: 36415; 82607; 84443